=== PATIENT | male | born 1945 | race Caucasian/White ===

== ENCOUNTER 2016-11-25 09:12 | Outpatient (CLI) | END 2016-11-25 09:13 | disposition home or self-care (01) | LOC: WOUND 09:12 | PROVIDERS: ATTEND Nurse Practitioner Family | DX: E11.621 Type 2 diabetes mellitus with foot ulcer (principal); L97.512 Non-pressure chronic ulcer of other part of right foot with fat layer exposed; L03.115 Cellulitis of right lower limb; G62.9 Polyneuropathy, unspecified; E11.40 Type 2 diabetes mellitus with diabetic neuropathy, unspecified | CPT/HCPCS: 11042 ==

== ENCOUNTER 2016-12-02 09:05 | Outpatient (CLI) | END 2016-12-02 09:06 | disposition home or self-care (01) | LOC: WOUND 09:05 | PROVIDERS: ATTEND Nurse Practitioner Family | DX: E11.621 Type 2 diabetes mellitus with foot ulcer (principal); L97.512 Non-pressure chronic ulcer of other part of right foot with fat layer exposed; L03.115 Cellulitis of right lower limb; G62.9 Polyneuropathy, unspecified; E11.40 Type 2 diabetes mellitus with diabetic neuropathy, unspecified | CPT/HCPCS: 11042; 99213 ==

== ENCOUNTER 2016-12-09 09:02 | Outpatient (CLI) | payer OTHER | END 2016-12-09 09:03 | disposition home or self-care (01) | LOC: WOUND 09:02 | PROVIDERS: ATTEND Nurse Practitioner Family | DX: E11.621 Type 2 diabetes mellitus with foot ulcer (principal); L97.512 Non-pressure chronic ulcer of other part of right foot with fat layer exposed; L03.115 Cellulitis of right lower limb; G62.9 Polyneuropathy, unspecified; E11.40 Type 2 diabetes mellitus with diabetic neuropathy, unspecified | CPT/HCPCS: 11042; 99213 ==

== ENCOUNTER 2016-12-16 08:59 | Outpatient (CLI) | payer OTHER | END 2016-12-16 09:00 | disposition home or self-care (01) | LOC: WOUND 08:59 | PROVIDERS: ATTEND Nurse Practitioner Family | DX: E11.621 Type 2 diabetes mellitus with foot ulcer (principal); L97.512 Non-pressure chronic ulcer of other part of right foot with fat layer exposed; L03.115 Cellulitis of right lower limb; G62.9 Polyneuropathy, unspecified; E11.40 Type 2 diabetes mellitus with diabetic neuropathy, unspecified; I10 Essential (primary) hypertension; E11.59 Type 2 diabetes mellitus with other circulatory complications; M81.0 Age-related osteoporosis without current pathological fracture; Z79.899 Other long term (current) drug therapy | CPT/HCPCS: 11042; 36415; 80053; 80061; 81001; 82306; 83036; 85025; 99213 ==

== ENCOUNTER 2016-12-16 09:16 | Outpatient (CLI) ==
[2016-12-16 13:35] LABS: BASOPHILS % (AUTO) 0.4 % (0.0-3.0); EOSINOPHILS # (AUTO) 0.2 K/ul (0.0-0.7); HEMATOCRIT 45.7 % (42.0-52.0); HEMOGLOBIN 14.5 g/dl (14.0-18.0); IMMATURE GRANULOCYTE % (AUTO) 0.1 % (0.0-5.0); LYMPHOCYTES # (AUTO) 1.5 K/uL (0.60-3.4); LYMPHOCYTES % (AUTO) 20.4 (10.0-50.0); MEAN CORPUSCULAR HEMOGLOBIN 29.6 pg (27.0-31.0); MEAN CORPUSCULAR HGB CONC 31.7 (31.8-35.4); MEAN CORPUSCULAR VOLUME 93.3 fl (80.0-94.0); MONOCYTES # (AUTO) 0.7 K/uL (0.4-2.0); MONOCYTES % (AUTO) 10.2 (0-10); NEUTROPHILS # (AUTO) 4.8 K/ul (2.0-6.9); NEUTROPHILS % (AUTO) 65.9; PLATELET COUNT 267 10^3/uL (140-440); WHITE BLOOD COUNT 7.22 K/ul (4.2-10.2)
[2016-12-16 13:41] LABS: BILIRUBIN,URINE Negative (NEGATIVE); KETONES,URINE Negative (NEGATIVE); LEUKOCYTE ESTERASE ,URINE Negative (NEGATIVE); NITRITE,URINE Negative (NEGATIVE); PH,URINE 5.5 (5-9); PROTEIN,URINE Negative (NEGATIVE); URINE, BLOOD Negative (NEGATIVE)
[2016-12-16 13:43] LABS: ADD URINE MICROSCOPIC NO
[2016-12-16 13:49] LABS: ALBUMIN 3.5 g/dL (3.4-5.0); ALBUMIN/GLOBULIN RATIO 0.92; ANION GAP 13.4; BILIRUBIN,TOTAL 0.69 mg/dL (0.00-1.20); CALCIUM 9.7 mg/dL (8.2-10.2); CHOL/HDL RATIO 2.3 (4.5-6.4); POTASSIUM 4.4 mmol/L (3.5-5.1); TOTAL PROTEIN 7.3 g/dL (5.8-8.1)
== END 2016-12-16 09:17 | disposition home or self-care (01) ==
LOC: LAB 09:16
PROVIDERS: ATTEND General Practice
DX: I10 Essential (primary) hypertension (principal); E10.59 Type 1 diabetes mellitus with other circulatory complications; M81.0 Age-related osteoporosis without current pathological fracture; Z79.899 Other long term (current) drug therapy
CPT/HCPCS: 36415; 80053; 80061; 81001; 82306; 83036; 85025

== ENCOUNTER 2016-12-23 09:21 | Outpatient (CLI) | END 2016-12-23 09:22 | disposition home or self-care (01) | LOC: WOUND 09:21 | PROVIDERS: ATTEND Nurse Practitioner Family | DX: E11.621 Type 2 diabetes mellitus with foot ulcer (principal); L97.512 Non-pressure chronic ulcer of other part of right foot with fat layer exposed; L03.115 Cellulitis of right lower limb; G62.9 Polyneuropathy, unspecified; E11.40 Type 2 diabetes mellitus with diabetic neuropathy, unspecified | CPT/HCPCS: 11042; 99213 ==

== ENCOUNTER 2016-12-30 09:27 | Outpatient (CLI) | END 2016-12-30 09:28 | disposition home or self-care (01) | LOC: WOUND 09:27 | PROVIDERS: ATTEND Nurse Practitioner Family | DX: E11.621 Type 2 diabetes mellitus with foot ulcer (principal); L97.512 Non-pressure chronic ulcer of other part of right foot with fat layer exposed; L03.115 Cellulitis of right lower limb; G62.9 Polyneuropathy, unspecified; E11.40 Type 2 diabetes mellitus with diabetic neuropathy, unspecified | CPT/HCPCS: 11042; 99213 ==

== ENCOUNTER 2017-01-20 09:16 | Outpatient (CLI) | END 2017-01-20 09:17 | disposition home or self-care (01) | LOC: WOUND 09:16 | PROVIDERS: ATTEND Nurse Practitioner Family | DX: E11.621 Type 2 diabetes mellitus with foot ulcer (principal); L97.512 Non-pressure chronic ulcer of other part of right foot with fat layer exposed; L03.115 Cellulitis of right lower limb; G62.9 Polyneuropathy, unspecified; E11.40 Type 2 diabetes mellitus with diabetic neuropathy, unspecified | CPT/HCPCS: 97602 ==

== ENCOUNTER 2017-02-03 09:25 | Outpatient (CLI) | payer OTHER | END 2017-02-03 09:26 | disposition home or self-care (01) | LOC: WOUND 09:25 | PROVIDERS: ATTEND Nurse Practitioner Family | DX: E11.621 Type 2 diabetes mellitus with foot ulcer (principal); L97.512 Non-pressure chronic ulcer of other part of right foot with fat layer exposed; L03.115 Cellulitis of right lower limb; G62.9 Polyneuropathy, unspecified; E11.40 Type 2 diabetes mellitus with diabetic neuropathy, unspecified | CPT/HCPCS: 11042; 99213 ==

== ENCOUNTER 2017-02-10 09:06 | Outpatient (CLI) | END 2017-02-10 09:07 | disposition home or self-care (01) | LOC: WOUND 09:06 | PROVIDERS: ATTEND Nurse Practitioner Family | DX: E11.621 Type 2 diabetes mellitus with foot ulcer (principal); L97.512 Non-pressure chronic ulcer of other part of right foot with fat layer exposed; L03.115 Cellulitis of right lower limb; G62.9 Polyneuropathy, unspecified; E11.40 Type 2 diabetes mellitus with diabetic neuropathy, unspecified | CPT/HCPCS: 99211; 99212 ==

== ENCOUNTER 2017-04-22 11:54 | Outpatient (CLI) ==
[2017-04-22 13:38] LABS: BILIRUBIN,URINE Negative (NEGATIVE); KETONES,URINE Negative (NEGATIVE); LEUKOCYTE ESTERASE ,URINE Negative (NEGATIVE); NITRITE,URINE Negative (NEGATIVE); PH,URINE 5.5 (5-9); PROTEIN,URINE Trace (NEGATIVE); URINE, BLOOD Negative (NEGATIVE)
[2017-04-22 13:39] LABS: ADD URINE MICROSCOPIC YES
[2017-04-22 13:40] LABS: BASOPHILS # (AUTO) 0.1 K/uL (0-0.2); BASOPHILS % (AUTO) 0.7 % (0.0-3.0); EOSINOPHILS # (AUTO) 0.2 K/ul (0.0-0.7); EOSINOPHILS % (AUTO) 3.2 % (0.0-7.0); HEMATOCRIT 49.9 % (42.0-52.0); HEMOGLOBIN 15.9 g/dl (14.0-18.0); IMMATURE GRANULOCYTE % (AUTO) 0.1 % (0.0-5.0); LYMPHOCYTES # (AUTO) 1.5 K/uL (0.60-3.4); LYMPHOCYTES % (AUTO) 20.6 (10.0-50.0); MEAN CORPUSCULAR HEMOGLOBIN 29.9 pg (27.0-31.0); MEAN CORPUSCULAR HGB CONC 31.9 (31.8-35.4); MEAN CORPUSCULAR VOLUME 93.8 fl (80.0-94.0); MONOCYTES # (AUTO) 0.7 K/uL (0.4-2.0); MONOCYTES % (AUTO) 9.4 (0-10); NEUTROPHILS # (AUTO) 4.8 K/ul (2.0-6.9); PLATELET COUNT 250 10^3/uL (140-440); RED BLOOD COUNT 5.32 10^6/ul (4.70-6.10); WHITE BLOOD COUNT 7.27 K/ul (4.2-10.2)
[2017-04-22 14:00] LABS: ALBUMIN 3.8 g/dL (3.4-5.0); ALBUMIN/GLOBULIN RATIO 0.93; ANION GAP 17.6; BILIRUBIN,TOTAL 0.92 mg/dL (0.00-1.20); BUN/CREATININE RATIO 19.38; CHOL/HDL RATIO 2.1 (4.5-6.4); CREATININE 0.98 mg/dL (0.60-1.10); POTASSIUM 4.6 mmol/L (3.5-5.1); TOTAL PROTEIN 7.9 g/dL (5.8-8.1)
== END 2017-04-22 11:55 | disposition home or self-care (01) ==
LOC: LAB 11:54
PROVIDERS: ATTEND General Practice
DX: E10.51 Type 1 diabetes mellitus with diabetic peripheral angiopathy without gangrene (principal); G62.9 Polyneuropathy, unspecified; I10 Essential (primary) hypertension; Z79.899 Other long term (current) drug therapy
CPT/HCPCS: 36415; 80053; 80061; 81001; 83036; 85025

== ENCOUNTER 2017-08-23 15:28 | Outpatient (CLI) | payer OTHER ==
[2017-08-23 15:41] LABS: BASOPHILS # (AUTO) 0.1 K/uL (0-0.2); BASOPHILS % (AUTO) 0.6 % (0.0-3.0); EOSINOPHILS # (AUTO) 0.2 K/ul (0.0-0.7); EOSINOPHILS % (AUTO) 1.3 % (0.0-7.0); HEMATOCRIT 46.3 % (42.0-52.0); HEMOGLOBIN 15.1 g/dl (14.0-18.0); IMMATURE GRANULOCYTE % (AUTO) 0.5 % (0.0-5.0); LYMPHOCYTES # (AUTO) 0.9 K/uL (0.60-3.4); LYMPHOCYTES % (AUTO) 7.5 (10.0-50.0); MEAN CORPUSCULAR HGB CONC 32.6 (31.8-35.4); MEAN CORPUSCULAR VOLUME 95.1 fl (80.0-94.0); MONOCYTES # (AUTO) 0.6 K/uL (0.4-2.0); MONOCYTES % (AUTO) 5.1 (0-10); NEUTROPHILS # (AUTO) 10.7 K/ul (2.0-6.9); PLATELET COUNT 273 10^3/uL (140-440); RED BLOOD COUNT 4.87 10^6/ul (4.70-6.10); WHITE BLOOD COUNT 12.61 K/ul (4.2-10.2)
[2017-08-23 15:42] LABS: BILIRUBIN,URINE Negative (NEGATIVE); KETONES,URINE Trace (NEGATIVE); LEUKOCYTE ESTERASE ,URINE Negative (NEGATIVE); NITRITE,URINE Negative (NEGATIVE); PROTEIN,URINE Negative (NEGATIVE); URINE, BLOOD Negative (NEGATIVE)
[2017-08-23 15:43] LABS: ADD URINE MICROSCOPIC NO
[2017-08-23 16:17] LABS: ALBUMIN 3.4 g/dL (3.4-5.0); ALBUMIN/GLOBULIN RATIO 0.94; ANION GAP 13.3; BILIRUBIN,TOTAL 0.64 mg/dL (0.00-1.20); BUN/CREATININE RATIO 21.42; CALCIUM 9.6 mg/dL (8.2-10.2); CHOL/HDL RATIO 2.2 (4.5-6.4); CREATININE 0.84 mg/dL (0.60-1.10); POTASSIUM 4.3 mmol/L (3.5-5.1)
== END 2017-08-23 15:29 | disposition home or self-care (01) ==
LOC: LAB 15:28
PROVIDERS: ATTEND General Practice
DX: E10.51 Type 1 diabetes mellitus with diabetic peripheral angiopathy without gangrene (principal); I10 Essential (primary) hypertension; G62.9 Polyneuropathy, unspecified; M81.0 Age-related osteoporosis without current pathological fracture; R97.20 Elevated prostate specific antigen [PSA]; Z79.899 Other long term (current) drug therapy
CPT/HCPCS: 36415; 80053; 80061; 81001; 83036; 85025

== ENCOUNTER 2017-10-28 12:47 | Outpatient (CLI) ==
[2017-10-28 13:32] LABS: ANION GAP 12.3; BUN/CREATININE RATIO 16.66; CALCIUM 9.2 mg/dL (8.2-10.2); CREATININE 0.96 mg/dL (0.60-1.10); POTASSIUM 4.3 mmol/L (3.5-5.1)
== END 2017-10-28 12:48 | disposition home or self-care (01) ==
LOC: LAB 12:47
PROVIDERS: ATTEND General Practice
DX: Z79.899 Other long term (current) drug therapy (principal)
CPT/HCPCS: 36415; 80048

== ENCOUNTER 2017-11-30 12:06 | Outpatient (CLI) ==
--- NOTE | 2017-11-30 12:24 | DI ---
EXAM: Three views of the left foot. History: Left foot edema. Findings: Atherosclerotic vascular calcifications. No acute fracture or dislocation. There is a 1. 8 cm linear radiopaque foreign body within the soft tissues adjacent to the fifth metatarsal. Mild n arrowing of the first MTP joint. Impression: 1. Soft tissue foreign body. 2. No acute osseous abnormality. 3. Severe atherosclerotic vascular disease
== END 2017-11-30 12:07 | disposition home or self-care (01) ==
LOC: RAD 12:06
PROVIDERS: ATTEND General Practice
DX: R60.9 Edema, unspecified (principal); L53.9 Erythematous condition, unspecified; I10 Essential (primary) hypertension; E10.51 Type 1 diabetes mellitus with diabetic peripheral angiopathy without gangrene; E10.65 Type 1 diabetes mellitus with hyperglycemia; Z79.899 Other long term (current) drug therapy
CPT/HCPCS: 36415; 80053; 80061; 81001; 83036; 84443; 84550; 85025

== ENCOUNTER 2018-04-25 11:46 | Outpatient (CLI) | END 2018-04-25 11:47 | disposition home or self-care (01) | LOC: FCC-LAB 11:46 | PROVIDERS: ATTEND General Practice | DX: E10.51 Type 1 diabetes mellitus with diabetic peripheral angiopathy without gangrene (principal); I10 Essential (primary) hypertension; G62.9 Polyneuropathy, unspecified; R97.20 Elevated prostate specific antigen [PSA]; M81.0 Age-related osteoporosis without current pathological fracture; N18.2 Chronic kidney disease, stage 2 (mild); Z79.899 Other long term (current) drug therapy | CPT/HCPCS: 36415; 80053; 80061; 81001; 83036; 84153; 85025 ==

== ENCOUNTER 2018-09-07 08:57 | Outpatient (CLI) | END 2018-09-07 08:58 | disposition home or self-care (01) | LOC: FCC-LAB 08:57 | PROVIDERS: ATTEND General Practice | DX: E10.51 Type 1 diabetes mellitus with diabetic peripheral angiopathy without gangrene (principal); I10 Essential (primary) hypertension; N18.2 Chronic kidney disease, stage 2 (mild); G62.9 Polyneuropathy, unspecified; Z79.899 Other long term (current) drug therapy | CPT/HCPCS: 36415; 80053; 80061; 81001; 83036; 85025 ==

== ENCOUNTER 2019-01-04 08:02 | Outpatient (CLI) | END 2019-01-04 08:03 | disposition home or self-care (01) | LOC: RHC-LAB 08:02 | PROVIDERS: ATTEND General Practice | DX: E10.51 Type 1 diabetes mellitus with diabetic peripheral angiopathy without gangrene (principal); Z79.899 Other long term (current) drug therapy | CPT/HCPCS: 36415; 80053; 80061; 81001; 83036; 85025 ==

== ENCOUNTER 2019-01-25 16:07 | Outpatient (CLI) ==
--- NOTE | 2019-01-26 07:47 | DI ---
EXAM: Five views of the lumbar spine HISTORY: Lower back pain. COMPARISON: Lumbar spine x-ray 07/17/2013 and MRI 07/19/2013 FINDINGS: There is lateral fusion hardware at L4-L5 with disc spacer material posterior hardware pres ent. There is no evidence of hardware fracture or loosening. There is trace retrolisthesis of L3 on L4. There is moderate facet arthropathy. There is minimal narrowing of the lumbosacral junction an d questionable mild neural foraminal narrowing at L5-S1. IMPRESSION: 1. No acute compression fracture or subluxation. 2. Interval placement of surgical hardware at L4-L5 with no evidence of hardware fracture or looseni ng. 3. Scattered degenerative disease throughout the lumbosacral spine with questionable mild narrowing of the neural foramen at L5-S1.
== END 2019-01-25 16:08 | disposition home or self-care (01) ==
LOC: RHC-LAB 16:07
PROVIDERS: ATTEND General Practice
DX: M54.5 Low back pain (principal); E10.51 Type 1 diabetes mellitus with diabetic peripheral angiopathy without gangrene; N18.2 Chronic kidney disease, stage 2 (mild); I10 Essential (primary) hypertension
CPT/HCPCS: 36415; 83519

== ENCOUNTER 2019-02-01 08:59 | Outpatient (CLI) | END 2019-02-01 09:00 | disposition home or self-care (01) | LOC: WOUND 08:59 | PROVIDERS: ATTEND Nurse Practitioner Family | DX: S81.012A Laceration without foreign body, left knee, initial encounter (principal); E10.9 Type 1 diabetes mellitus without complications ==

== ENCOUNTER 2019-02-08 08:54 | Outpatient (CLI) | payer OTHER | END 2019-02-08 08:55 | disposition home or self-care (01) | LOC: WOUND 08:54 | PROVIDERS: ATTEND Nurse Practitioner Family | DX: S81.012A Laceration without foreign body, left knee, initial encounter (principal); E10.9 Type 1 diabetes mellitus without complications | CPT/HCPCS: 11042 ==

== ENCOUNTER 2019-02-22 08:38 | Outpatient (CLI) | END 2019-02-22 08:39 | disposition home or self-care (01) | LOC: WOUND 08:38 | DX: S81.012A Laceration without foreign body, left knee, initial encounter (principal); E10.9 Type 1 diabetes mellitus without complications ==

== ENCOUNTER 2019-05-16 12:37 | Inpatient (IN) ==
[2019-05-16] MEDS ORDERED: PROAIR HFA IH PRN (13:54)
[2019-05-16] MEDS ORDERED: INSULIN LISPRO SQ SCH (14:00)
[2019-05-16] MEDS ORDERED: HUMALOG SUBCUT PRN (14:01)
[2019-05-16] MEDS: EPSOM SALT TP SCH ×2 (15:18→21:44)
--- NOTE | 2019-05-16 16:44 | DI ---
EXAM: Left foot three views HISTORY: Decreased sensation of the left foot, wound, cellulitis FINDINGS: Compared to 11/30/2017. There is a 2.2 cm wire like metallic foreign body superimposed ov er the mid fifth metatarsal bone not noticeably changed since prior exam. General bone density is mi ldly decreased. There is no evidence of bony erosion or bony destructive process. There is diffuse arthropathy, slightly more noticeable at the first metatarsophalangeal joint, mild to moderate. Soft tissues reveal vascular calcifications. No gas collections identified within the soft tissues. IMPRESSION: 1. No obvious acute radiographic findings. See above.
[2019-05-16] MEDS: GLUCOPHAGE PO SCH (16:56)
[2019-05-16] MEDS: HUMALOG SUBCUT SCH ×2 (16:57→18:28)
--- NOTE | 2019-05-16 18:07 | DI ---
EXAM: Two-view chest HISTORY: Fever chronic obstructive pulmonary disease COMPARISON: Two-view chest 08/25/2016 FINDINGS: The cardiomediastinal silhouette is stable. The lungs are hyperinflated. There are benig n granulomatous changes. IMPRESSION: Emphysematous changes with benign granulomatous change.
[2019-05-16] MEDS ORDERED: ADDITIVE ONLY IV SCH (21:00)
[2019-05-16] MEDS ORDERED: LACTATED RINGERS IV SCH (21:00)
[2019-05-16] MEDS ORDERED: POTASSIUM CHLORIDE IV SCH (21:00)
[2019-05-16] MEDS: PREDNISONE PO SCH (21:44)
[2019-05-16] MEDS: LANTUS SUBCUT SCH (21:48)
[2019-05-16] MEDS ORDERED: POTASSIUM CHLORIDE 20 MEQ VIAL- ADDITIVE ONLY IV ONE (21:59)
[2019-05-16] MEDS: VANCOMYCIN 1 GM in SODIUM CHLORIDE 250 ML IV SCH (22:08)
[2019-05-17] MEDS: LIPITOR PO SCH (08:58)
[2019-05-17] MEDS: GLUCOPHAGE PO SCH ×2 (08:58→17:28)
[2019-05-17] MEDS: VITAMIN D PO SCH (08:58)
[2019-05-17] MEDS: VANCOMYCIN 1 GM in SODIUM CHLORIDE 250 ML IV SCH ×2 (08:58→20:31)
[2019-05-17] MEDS: HUMALOG SUBCUT SCH ×3 (08:59→17:28)
[2019-05-17] MEDS ORDERED: NON-FORMULARY MEDICATION (Cholecalciferol (Vitamin D3) [Vitamin D3] 2,000 UNIT) PO SCH (09:00)
[2019-05-17] MEDS: POTASSIUM CHLORIDE IV SCH ×2 (09:05→14:52)
[2019-05-17] MEDS: ADDITIVE ONLY IV SCH ×2 (09:05→14:52)
[2019-05-17] MEDS: LACTATED RINGERS IV SCH ×2 (09:05→14:52)
[2019-05-17] MEDS: EPSOM SALT TP SCH ×3 (09:06→20:32)
[2019-05-17] MEDS ORDERED: POTASSIUM CHLORIDE 20 MEQ VIAL- ADDITIVE ONLY IV ONE (14:42)
[2019-05-17] MEDS: LACTATED RINGERS 1,000 ML IV SCH (16:40)
[2019-05-17] MEDS: LANTUS SUBCUT SCH (20:31)
[2019-05-17] MEDS: PREDNISONE PO SCH (20:31)
[2019-05-18] MEDS: LACTATED RINGERS 1,000 ML IV SCH (07:16)
[2019-05-18] MEDS: LIPITOR PO SCH (08:18)
[2019-05-18] MEDS: VITAMIN D PO SCH (08:18)
[2019-05-18] MEDS: GLUCOPHAGE PO SCH ×2 (08:18→16:37)
[2019-05-18] MEDS: EPSOM SALT TP SCH ×3 (08:19→20:27)
[2019-05-18] MEDS: HUMALOG SUBCUT SCH ×3 (08:20→16:39)
[2019-05-18] MEDS: VANCOMYCIN 1 GM in SODIUM CHLORIDE 250 ML IV SCH ×2 (10:25→20:48)
[2019-05-18] MEDS: ROCEPHIN 2 GM in SODIUM CHLORIDE 50 ML IV SCH (12:13)
[2019-05-18] MEDS ORDERED: BACTROBAN TP ONE (20:13)
[2019-05-18] MEDS: PREDNISONE PO SCH (20:48)
[2019-05-18] MEDS: LANTUS SUBCUT SCH (20:48)
[2019-05-19] MEDS: LACTATED RINGERS 1,000 ML IV SCH ×3 (01:51→17:59)
[2019-05-19] MEDS: VITAMIN D PO SCH (08:29)
[2019-05-19] MEDS: LIPITOR PO SCH (08:30)
[2019-05-19] MEDS: ROCEPHIN 2 GM in SODIUM CHLORIDE 50 ML IV SCH (08:30)
[2019-05-19] MEDS: GLUCOPHAGE PO SCH ×2 (08:30→16:30)
[2019-05-19] MEDS: EPSOM SALT TP SCH (08:30)
[2019-05-19] MEDS: HUMALOG SUBCUT SCH ×3 (08:31→16:31)
[2019-05-19] MEDS: VANCOMYCIN 1 GM in SODIUM CHLORIDE 250 ML IV SCH ×2 (10:06→21:01)
--- NOTE | 2019-05-19 13:39 | HP ---
DATE OF SERVICE: 05/16/19 CHIEF COMPLAINT: Left great toe pain. HISTORY OF PRESENT ILLNESS: Mr. Arnold is a pleasant 73-year-old patient of Dr. Gonsalves who presents to the office with complaints of left great toe pain. He reports that he cut his toenails approximately one month ago and he cut some skin to the top of the left great toe area and he reports that it started to bleed and for the first week after cutting his nails and that skin into the top part, the distal part of his toe he put a dressing on it. He said he thought it was healing fine and he was applying the dressing. He noticed that the left great toe was getting red on Wednesday. He asked his to take a look at his toe, the redness began traveling up the left foot into the left ankle and the left great toe distal end has turned very dark in color. There is swelling into the left foot. He reports that it is very painful and sore. The distal end of the toe is dark and there is some scabbing now and an open appearing wound. He came into the office on the date of admission on 05/16/19 to be evaluated by . Due to the appearance of the wound and the large amount of swelling and the redness that has traveled up the foot, the concerns for cellulitis and lymphangitis and gangrene, decision was made to admit the patient to the hospital to obtain blood cultures, wound cultures and ultimately treat the patient with antibiotics. 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 SOCIAL HISTORY: Former smoker less than one pack a day for 10 years. Occasionally drinks alcohol. Denies any substance abuse. He reports mandaeism preference is [employer]ism. MEDICATIONS: (CURRENT HOME MEDICATIONS) Atorvastatin 10 mg daily Metformin 500 mg twice a day Humalog per sliding scale Insulin with meals as directed Lantus 20 units at bedtime Alendronate 70 mg p.o. weekly Vitamin D3 2000 units capsule daily Prednisone 10 mg daily Albutrol Sulfate/ProAir HFA inhaler q.i.d. p.r.n. ALLERGIES: NKDA REVIEW OF SYSTEMS: CONSTITUTIONAL: He does report fever the last few days. HEENT: No reports of headache, nasal drainage, sore throat or ear pressure. CARDIOVASCULAR: No reports of chest pain, irregular rhythm, orthopnea. He does complain of left lower extremity swelling. LUNGS: He does report chronic issues with shortness of breath with history of COPD. He does have a bit of a chronic cough and some chronic congestion. GASTROINTESTINAL: No reports of abdominal pain, nausea vomiting, diarrhea, constipation. No blood in the stool. No reports of changes in stool consistency. GENITOURINARY: No reports of dysuria, hematuria, nocturia or urinary incontinence. MUSCULOSKELETAL: He does complain of some chronic arthritis to his hands. Otherwise, no reports of joint redness, swelling or any other problems. NEUROLOGIC: No reports of dizziness, fatigue or neurological deficit. PSYCHIATRIC: No reports of anxiety, depression or mood changes. ENDOCRINE: He does have a history of uncontrolled diabetes mellitus type 1. He is on insulin. No reports of thyroid disease. No reports of increased thirst, urination, heat or cold intolerance. INTEGUMENT: He does have lower extremity wound to his left great toe with redness that extends up his left lower extremity. PHYSICAL EXAMINATION: GENERAL: He is alert and oriented. He appears well-nourished, no acute distress. VITAL SIGNS: On admission to the hospital, temperature 98.4, pulse rate 98, blood pressure 137/80, respiratory rate 16, 02 sat 94% on room air. Height 5'9" , weight 135 lbs. HEENT: Head is normocephalic, atraumatic. Pupils are equal. Conjunctivae clear. Mucous membranes are moist. Pupils 3 mm. No dentures. No exudate. NECK: No masses. Nontender, no bruits. No thyromegaly. CARDIOVASCULAR: S1, S2, regular rate and rhythm. No JVD, no peripheral edema. No murmur. LUNGS: Breath sounds are diminished to the bases. There are wheezes to the bases. ABDOMEN: Soft, bowel sounds positive. Nontender. No mass. No bruit. NEUROLOGICAL: Cranial nerves 2-12 are grossly intact. Affect is normal. Normal judgement. No neurological deficits noted. SKIN: Warm and dry. Pedal pulses are present to the right anterior, absent to the left, not palpable. He does have a wound to the distal aspect of left great toe. It does appear very dark in color, almost black in color and very moist. His left great toe is swollen, red with swelling and the redness extends upward into the mid sawyer. His left lower extremity is very tender and painful. ASSESSMENT: 1. Cellulitis of the left great toe with lymphangitis and gangrene. 2. Uncontrolled diabetes mellitus type 1 with peripheral vascular disorder. 3. Hypertension. 4. Neuropathy. 5. Chronic kidney disease Stage 2. 6. COPD. 7. Dyslipidemia. 8. History of arthritis to his hands. PLAN: 1. Admit the patient. 2. Obtain blood cultures and wound culture STAT. 3. Check labs, urinalysis, A1C, procalcitonin and soak the left foot in warm water with Epsom Salt three times a day for at least 30 minutes. 4. Will try to get ABIs to the bilateral lower extremities. 5. Chest x-ray. 6. After review of labs, we will initiate antibiotics. TIME SPENT: GREATER THAN 65 MINUTES MTDD
[2019-05-19] MEDS: LANTUS SUBCUT SCH (21:01)
[2019-05-19] MEDS: PREDNISONE PO SCH (21:01)
[2019-05-20] MEDS: BACTROBAN TP SCH ×2 (03:27→09:30)
[2019-05-20] MEDS: GLUCOPHAGE PO SCH ×2 (08:13→17:11)
[2019-05-20] MEDS: VITAMIN D PO SCH (08:14)
[2019-05-20] MEDS: HUMALOG SUBCUT SCH ×3 (08:14→17:11)
[2019-05-20] MEDS: LIPITOR PO SCH (08:14)
[2019-05-20] MEDS: ROCEPHIN 2 GM in SODIUM CHLORIDE 50 ML IV SCH (08:14)
[2019-05-20] MEDS ORDERED: VANCOMYCIN 1 GM in SODIUM CHLORIDE 250 ML IV STA ×2 (08:58→19:19)
[2019-05-20] MEDS: LACTATED RINGERS 1,000 ML IV SCH (09:30)
[2019-05-20] MEDS: LANTUS SUBCUT SCH (20:21)
[2019-05-20] MEDS: PREDNISONE PO SCH (20:27)
[2019-05-21] MEDS: LACTATED RINGERS 1,000 ML IV SCH ×3 (00:39→14:06)
[2019-05-21] MEDS: BACTROBAN TP SCH (08:21)
[2019-05-21] MEDS: ROCEPHIN 2 GM in SODIUM CHLORIDE 50 ML IV SCH (08:21)
[2019-05-21] MEDS: VITAMIN D PO SCH (08:22)
[2019-05-21] MEDS: LIPITOR PO SCH (08:22)
[2019-05-21] MEDS: HUMALOG SUBCUT SCH ×3 (08:22→17:20)
[2019-05-21] MEDS: GLUCOPHAGE PO SCH ×2 (08:22→17:20)
[2019-05-21] MEDS ORDERED: CLEOCIN ONE (17:42)
[2019-05-21] MEDS: CLEOCIN 600 MG in SODIUM CHLORIDE 50 ML IV SCH (17:47)
[2019-05-21] MEDS: LANTUS SUBCUT SCH (20:37)
[2019-05-21] MEDS: PREDNISONE PO SCH (20:39)
[2019-05-22] MEDS ORDERED: CLEOCIN ONE ×2 (00:17→05:42)
[2019-05-22] MEDS: CLEOCIN 600 MG in SODIUM CHLORIDE 50 ML IV SCH ×2 (00:21→05:51)
[2019-05-22 05:11] VITALS: BP 111/61; TEMP 98.5
[2019-05-22] MEDS: LACTATED RINGERS 1,000 ML IV SCH (05:14)
[2019-05-22] MEDS ORDERED: ROCEPHIN 2 GM/50 ML D5W 2 GM in PREMIX 50 ML D5W 1 BAG IV SCH (09:00)
[2019-05-22] MEDS: VITAMIN D PO SCH (09:20)
[2019-05-22] MEDS: LIPITOR PO SCH (09:20)
[2019-05-22] MEDS: HUMALOG SUBCUT SCH ×2 (09:21→11:57)
[2019-05-22] MEDS: GLUCOPHAGE PO SCH (09:22)
[2019-05-22] MEDS: BACTROBAN TP SCH (09:23)
--- NOTE | 2019-05-22 11:28 | PN ---
DATE OF SERVICE: 05/22/19 SUBJECTIVE: The patient had a necrotic distal end of left big toe which had been for one month. Lymphangitis has resolved and the swelling and redness of the foot also has decreased remarkably. The patient is receiving Vancomycin 1 gm q.12hr because of Staph Aureus. Also is receiving Rocephin 2 gm once daily because of the Morganella Morganii sensitive to Ceftriaxone and not tested with Vancomycin. The area was cleaned with Hydrogen Peroxide and debrided sharply using scissors and scalpel #15. Bone is sticking through. The patient tolerated the procedure well. Swelling of the left big toe is less as well as the redness. I told the patient that this would probably require amputation and I don't know how far it is. Determination will be better after the swelling has resolved as well as the redness. We talked about orthopaedic surgeon who did the surgery on the right second toe. The patient was agreeable. RUSSEL
--- NOTE | 2019-05-22 11:41 | PN ---
DATE OF SERVICE: 05/20/19 SUBJECTIVE: The patient today is alert, oriented. His was present. Debridement was carried out sharply using an Iris scissor as well as a scalpel Size 15. Most of the necrotic tissue was removed. The redness and swelling of the left big toe is much less. The swelling of the left foot also is less. I did tell him again that we will get in touch with the Orthopaedic Surgeon, Dr. Galo Mccullough , who operated on his left big toe. After debridement, the area was dressed with Bactroban application prior to the dressing. His two hour post prandial blood sugar is still not within good control but it is not remarkably high, about 200. He denies any chest pain or any shortness of breath or pain in the calf muscles. RUSSEL
--- NOTE | 2019-05-22 11:49 | PN ---
DATE OF SERVICE: 05/21/19 SUBJECTIVE: The patient today is alert, oriented times four, not dyspneic or tachypneic without any complaints. The big toe has some necrotic area but no further debriedment was carried out. His was present and discussed the referral. I did tell them that I would talk to Dr. Mccullough in the morning, Wednesday morning. The did ask me if Dr. Mccullough does not want to see him right away or what to do. I told her that we would just cross that bridge when it happens. I could not tell her what to do and what would Dr. Mccullough's office would tell me. I did tell them also that I do not know how much amputation is going to do and how far up on the toe. All these decisions will be done with Dr. Mccullough. The patient does not have any pain sensation. Surgery could probably be accomplished without any anesthetic with disarticulation. The patient was initiated on Clindamycin 300 mg every 6 hours aftr the Vancomycin was discontinued. He is on Clindamycin 300 mg every 6 hours and Rocephin 2 gm every 24 hours. The patient had not had any diarrhea or any abdominal pain. Labs today showed persistent mild leukocytois 2,510. Moderate anemia 12.2 gm hemoglobin, hematocrit 38.4. Fasting blood sugar today is 228, it was 147 yesterday. His procalcitonin today is less than 0.05. His electrolytes are acceptable. GFR is 120, creatinine 0.65, BUN 15.5. MTDD
--- NOTE | 2019-05-22 11:56 | PN ---
DATE OF SERVICE: 05/22/19 SUBJECTIVE: The patient is alert, oriented times four, not dyspneic or tachypneic. I did tell them about the conversation I had with Dr. Mccullough's office and his appointment today is at 2:30 in the afternoon. I will discharge him about 12 to 1 p.m. from here to go to Dr. Mccullough's office. The patient's medications are Clindamycin 300 mg q.6hr intravenously and Rocephin 2 gm daily. The patient still has minimal leukocytosis. Electrolytes are acceptable. EGFR 120 cc/min. Blood sugar 228.5, yesterday was 147. His procalcitonin is less than 0.05, essentially the same as admission. The patient's sugar sometimes is higher. The two hour post prandial on 05/20/19 was more or less acceptable after breakfast 181, after lunch 225 and after supper is 205 and at 8:00 in the evening was 200. The patient is receiving Humalog (insulin Lispro 3 units subcutaneously with meals). He is also receiving Lantus 20 units subcutaneously at bedtime. This patient had not been compliant with his diet. He is also taking Prednisone 10 mg at bedtime because of his rheumatoid arthritis prescribed by the cloud automation tester. It probably also has some effects on the control of his diabetes. The patient has an appointment with Dr. Mccullough today at 2:30 p.m. The patient as well as the was advised of this and again will discharge him between noon to 1:00 today. RUSSEL
--- NOTE | 2019-06-22 09:41 | PN ---
DATE OF SERVICE: 05/19/19 SUBJECTIVE: Today Mr. Arnold is resting in the bed. He does have his lower extremities elevated. He reports his left lower extremity has decreased in redness, it feels a lot better and there is a decrease in pain. He tells that Dr. Gonsalves did some debridement to that left great toe yesterday and it does feel quite a bit better. X-ray from 05/16/19 showed no obvious acute radiographic findings to the left foot. On examination there was a decrease in redness to the left ankle and left sawyer. The left foot was bandaged and the left great toe was bandaged and not able to examined. LUNGS: He did have some wheezes to the lower bases HEART: Regular rate and rhythm ABDOMEN: Soft, nontender Blood cultures are negative times 2 days. He wound cultures showed Staph and also grew Morganella Morganii. He is currently receiving Vancomycin and Ceftriaxone daily. His blood sugar is being monitored and he is on his insulin regimen. Yesterday is WBC was 11.48, hgb 12.9, hct 39.4, sodium 134.7, glucose 273.6, BUN 17.7, creatinine 0.67. This morning vital signs: temperature 97.9, pulse 80, blood pressure 103/66, pulse rate 78, O2 saturation 97% on room air. PLAN: 1. Continue the IV antibiotics 2. Further and recommendations per Dr. Gonsalves. [facility]PITALOswald
--- NOTE | 2019-06-27 12:49 | DS ---
DATE OF SERVICE: 05/22/19 FINAL DIAGNOSES: 1. NECROTIC ABSCESS DISTAL END OF LEFT GREAT TOE 2. CELLULITIS WITH LYMPHANGITIS OF THE LEFT FOOT AND LEFT LOWER EXTREMITY 3. DIABETES MELLITUS TYPE 1, UNCONTROLLED WITH AN A1C OF 10.88 ON ADMISSION 4. NONCOMPLIANCE WITH MEDICAL REGIMEN 5. HYPERTENSION 6. NEUROPATHY 7. CHRONIC KIDNEY DISEASE, STAGE 2 8. COPD 9. DYSLIPIDEMIA 10. HISTORY OF ARTHRITIS TO HANDS BRIEF HISTORY OF PRESENT ILLNESS AND HOSPITAL COURSE: Mr. Arnold is a pleasant 73-year-old patient of Dr. Gonsalves who presented to the office with complaints of left great toe pain. He reports that he cut his toenails approximately one month ago and he cut some skin to the top of the left great toe. He reports that it started to bleed for approximately one week after cutting his nails and to the skin at the top of the left great toe. He did put a dressing on it. He said he thought it was healing fine and he was applying the dressing. He noticed that the left great toe was getting red on the Wednesday prior to admission. He did ask his to take a look at his toe. He reports that the redness began traveling up the left great toe into the left ankle and the left great toe distal end had turned very dark in color. He noticed that there was swelling and redness into the left foot and left ankle and was traveling up the left lower extremity. He reports that it was very painful and sore. On exam the distal end of the toe was very dark and almost black in color. There was some scabbing noted and there was an open wound to the distal end of the left great toe. He decided to come in to be evaluated by Dr. Gonsalves. Due to the appearance of the wound and the large amount of swelling and redness that was traveling up the foot into the left lower extremity and concern for cellulitis and lymphangitis and gangrene, decision was made to admit the patient to the hospital to obtain blood cultures, wound cultures and treat the patient with antibiotics and debridement. The wound cultures did grow out Staphylococcus Aureus and Morganella Morganii. Blood cultures were negative. White count elevated on admission at 13.87, hemoglobin 13.1, hematocrit 40.2. These did remain stable during the hospital stay. Again his hemoglobin A1C was 10.88. Sodium 130.8, potassium 5.29 on admission, chloride 93.6, BUN 17.7, creatinine 0.73. Estimated GFR 105. LFTs normal on admission. Urinalysis negative for blood, negative for nitrate. X-ray of the foot showed no obvious acute radiographic findings. Chest x-ray showed emphysematous changes with benign granulomatous changes. The patient was given a Vancomycin intravenously as well as Rocephin intravenously during hospital stay. Debridement was completed of the left great toe per Dr. Gonsalves. Because of necrosis of the left great toe and bone apparent after the necrosis, Dr. Gonsalves did speak with Dr. Mccullough. Appointment was scheduled to see Dr. Mccullough at 2:30 on the date of discharge for evaluation. The patient will be discharged on p.o. antibiotics of Clindamycin and Cefdinir and instructed to stop if any diarrhea. DISCHARGE MEDICATIONS: Albuterol Sulfate ProAir as needed for shortness of breath Atorvastatin 10 mg daily Cefdinir 300 mg twice a day for 7 days Vitamin D3 2000 units daily Clindamycin 300 mg every 6 hours for 7 days Lantus 20 units at bedtime Humalog per sliding scale instructions Metformin 500 mg twice a day Prednisone 10 mg at bedtime The patient was instructed to stop taking Fosamax DISCHARGE DIET: Strict ADA diet DISCHARGE ACTIVITY: As tolerated. He is instructed to elevate the left lower extremity as much as possible. DISCHARGE INSTRUCTIONS: He will followup with Dr. Mccullough today and followup with Dr. Gonsalves after his appointment with Dr. Mccullough with further labs to be discussed at that appointment. TIME SPENT: GREATER THAN 30 MINUTES MTDD
--- NOTE | 2019-10-05 10:36 | PN ---
DATE OF SERVICE: 05/22/19 SUBJECTIVE: He is currently in the hospital with treatment of necrotic abscess at the distal of the left great toe as well as cellulitis with lymphangeitis of the left foot and left lower extremity. He also has uncontrolled diabetes mellitus and he has has some noncompliance with the medical regimen. He was admitted to the hospital for the abscess. The patient was admitted and he has been on Vancomycin as well as Rocephin intervenously during the hospital stay. VITAL SIGNS: Temperature 98.5, pulse 77, blood pressure 111/61, O2 saturation 94% on room air, respiratory rate 20. MTDD
== END 2019-05-22 13:45 | disposition home or self-care (01) | DRG 603 ==
LOC: MEDSURG B 12:37
PROVIDERS: ADMIT General Practice; ATTEND General Practice
DX: E78.5 Hyperlipidemia, unspecified; I89.1 Lymphangitis; Z91.19 Patient's noncompliance with other medical treatment and regimen; N18.2 Chronic kidney disease, stage 2 (mild); I73.9 Peripheral vascular disease, unspecified; E10.40 Type 1 diabetes mellitus with diabetic neuropathy, unspecified; J44.9 Chronic obstructive pulmonary disease, unspecified; I10 Essential (primary) hypertension; Z79.4 Long term (current) use of insulin; E10.65 Type 1 diabetes mellitus with hyperglycemia; L03.116 Cellulitis of left lower limb

== ENCOUNTER 2019-07-20 08:18 | Outpatient (CLI) | payer OTHER | END 2019-07-20 08:19 | disposition home or self-care (01) | LOC: RHC-LAB 08:18 | PROVIDERS: ATTEND General Practice | DX: I10 Essential (primary) hypertension (principal); E10.51 Type 1 diabetes mellitus with diabetic peripheral angiopathy without gangrene; G62.9 Polyneuropathy, unspecified; N18.2 Chronic kidney disease, stage 2 (mild); Z79.899 Other long term (current) drug therapy | CPT/HCPCS: 36415; 80053; 80061; 81001; 83036; 85025 ==

== ENCOUNTER 2019-07-27 11:37 | Outpatient (CLI) | payer OTHER ==
--- NOTE | 2019-07-27 11:58 | DI ---
EXAM: Three views of the left foot. History: Left foot pain. Comparison: Left foot radiograph 05/16/2019 Findings: No acute fracture or dislocation. Interval amputation of the first digit at the level of the MTP joint with adjacent soft tissue swelling. There is no jose cortical destruction identified to indicate osteomyelitis on today's study. Atherosclerotic vascular calcifications. Stable metalli c object within the fifth metatarsal. Impression: 1. Interval amputation of the first digit at the level of the MTP joint with adjacent soft tissue sw elling. There is no radiographic evidence for osteomyelitis on today's examination. 2. Atherosclerotic vascular disease. 3. Stable metallic object within the fifth metatarsal
== END 2019-07-27 11:38 | disposition home or self-care (01) ==
LOC: RAD 11:37
PROVIDERS: ATTEND General Practice
DX: R60.9 Edema, unspecified (principal); M86.9 Osteomyelitis, unspecified; S98.112A Complete traumatic amputation of left great toe, initial encounter